=== PATIENT | male | born 1950 | race African-American/Black ===

== ENCOUNTER 2017-11-05 15:40 | Emergency (ER) | payer MEDICARE, OTHER ==
[2017-11-05 15:50] VITALS: BP 153/61
[2017-11-05] MEDS ORDERED: ACETAMINOPHEN 325 MG TABLET PO ONE (16:39)
[2017-11-05] MEDS ORDERED: NORMAL SALINE 1000 ML 1,000 ML IV ONE (16:39)
--- NOTE | 2017-11-05 16:47 | ER Document Report ---
ED Medical Screen (RME) - General Chief Complaint: Leg Pain Stated Complaint: LEG PAIN Time Seen by Provider: 11/05/17 16:38 Mode of Arrival: Wheelchair Information source: Patient - HPI Patient complains to provider of: fever, achy, abd pain Onset: Yesterday - pt with onset of fever, generalized arthralgias and myalgias with intermittent abd pain since yesterday. Did not get flu shot this year. - Related Data Allergies/Adverse Reactions: No Known Allergies Allergy (Unverified 11/05/17 15:44) Past Medical History - Social History Frequency of alcohol use: None Drug Abuse: None Endocrine Medical History: Reports: Hx Diabetes Mellitus Type 2 Renal/ Medical History: Denies: Hx Peritoneal Dialysis Past Surgical History: Reports: Hx Cholecystectomy Physical Exam - Vital signs Vitals: Temp Pulse Resp BP Pulse Ox 103.0 F H 103 H 18 153/61 H 95 11/05/17 15:48 11/05/17 15:48 11/05/17 15:48 11/05/17 15:48 11/05/17 15:48 Course - Vital Signs Vital signs: Temp Pulse Resp BP Pulse Ox 103.0 F H 103 H 18 153/61 H 95 11/05/17 15:48 11/05/17 15:48 11/05/17 15:48 11/05/17 15:48 11/05/17 15:48
--- NOTE | 2017-11-05 17:15 | RADIOLOGY REPORT (SQ) ---
EXAM DESCRIPTION: ACUTE ABDOMEN SERIES COMPLETED DATE/TIME: 11/05/2017 5:00 pm REASON FOR STUDY: abd pain COMPARISON: None. NUMBER OF VIEWS: Three views. TECHNIQUE: Frontal chest, supine abdomen and upright/decubitus abdomen radiographic images acquired. LIMITATIONS: None. FINDINGS: CHEST: Lungs clear of infiltrates. FREE AIR: None. No abnormal gas collections. BOWEL GAS PATTERN: Nonobstructive pattern. Moderate stool throughout. No dilated loops or air fluid levels. CALCIFICATIONS: No suspicious calcifications. HARDWARE: None in the abdomen. SOFT TISSUES: No gross mass or suggestion of organomegaly. BONES: No acute fracture. No worrisome bone lesions. OTHER: No other significant finding. IMPRESSION: NO RADIOGRAPHIC EVIDENCE FOR ACUTE ABDOMINAL DISEASE. TECHNICAL DOCUMENTATION: JOB ID: [id number] ([email or web address])- All Rights Reserved
[2017-11-05 19:01] LABS: A TYPE INFLUENZA AG NEGATIVE (NEGATIVE)
[2017-11-05 19:02] LABS: B INFLUENZA AG NEGATIVE (NEGATIVE)
== END 2017-11-05 17:37 | disposition left against medical advice (07) ==
LOC: ER 15:40
DX: Z53.21 Procedure and treatment not carried out due to patient leaving prior to being seen by health care provider (principal); M79.606 Pain in leg, unspecified
CPT/HCPCS: 74022; 87804; 99281